=== PATIENT | female | born 1995 | race Caucasian/White ===

== ENCOUNTER 2018-01-22 21:56 | Emergency (ER) | payer OTHER ==
[2018-01-22 22:31] VITALS: O2SAT 100
--- NOTE | 2018-01-22 22:35 | C.PDOC ---
History Of Present Illness 22 year old female with PMHx of kidney stones presents to the ED complaining of right flank pain. She denies any nausea, fever, chills, vomiting, hematuria, or any other symptoms. Time Seen by Provider: 01/22/18 22:35 Chief Complaint (Nursing): Abdominal Pain History Per: Patient History/Exam Limitations: no limitations Current Symptoms Are (Timing): Still Present Severity: Moderate Pain Scale Rating Of: 4 Location Of Pain/Discomfort: Other (Right flank) Quality Of Discomfort: Cramping, Pressure Associated Symptoms: denies: Fever, Chills, Nausea, Vomiting, Diarrhea, Urinary Symptoms Exacerbating Factors: None Alleviating Factors: None Last Bowel Movement: Today Recent travel outside of the [place]: No Additional History Per: Family Abnormal Vaginal Bleeding: No Past Medical History Reviewed: Historical Data, Nursing Documentation, Vital Signs Vital Signs: Last Vital Signs Temp 98.3 F 01/23/18 01:22 Pulse 80 01/23/18 01:22 Resp 16 01/23/18 01:22 BP 105/71 01/23/18 01:22 Pulse Ox 100 01/23/18 01:22 - Medical History PMH: Kidney Stones Surgical History: Tonsillectomy Family History: States: No Known Family Hx - Social History Hx Alcohol Use: No Hx Substance Use: No - Immunization History Hx Tetanus Toxoid Vaccination: No Hx Influenza Vaccination: No Hx Pneumococcal Vaccination: No Review Of Systems Constitutional: Negative for: Fever, Chills Gastrointestinal: Positive for: Abdominal Pain (right flank pain). Negative for : Nausea, Vomiting, Diarrhea Genitourinary: Positive for: Dysuria Skin: Negative for: Rash Neurological: Negative for: Weakness Psych: Negative for: Anxiety Physical Exam - Physical Exam Appears: Non-toxic Skin: Warm, Dry Nose: Normal Oral Mucosa: Moist Chest: Symmetrical Cardiovascular: Rhythm Regular Respiratory: No Rales, No Rhonchi, No Wheezing Gastrointestinal/Abdominal: Soft, Tenderness (Right flank tenderness ), No Distention, No Guarding, No Rebound Back: CVA Tenderness (r flank) Extremity: Normal ROM Neurological/Psych: Oriented x3, Normal Speech Gait: Steady ED Course And Treatment - Laboratory Results Result Diagrams: 01/22/18 23:21 01/22/18 23:21 O2 Sat by Pulse Oximetry: 100 (RA) Pulse Ox Interpretation: Normal Medical Decision Making Medical Decision Making: Orders: - Fluids - UA Disposition Counseled Patient/Family Regarding: Studies Performed, Diagnosis, Need For Followup, Rx Given - Disposition Referrals: Sterling Sevilla Jr., MD [Staff Provider] - [facility] [Outside] [facility] [Outside] Disposition: HOME/ ROUTINE Disposition Time: 22:35 Condition: FAIR Additional Instructions: . salazar aleawdatiburcio 'iidha zaharat al'aeradu. kristyanina 'aydadeena 'iilaa mutabaeat fima yataealaq bialnatayij alwarak ealaa alashieat almiqtaeia Prescriptions: Ibuprofen [Motrin Tab] 800 mg PO TID PRN #115 tab PRN Reason: Pain, Moderate (4-7) Instructions: Renal Colic (DC), Kidney Stones (DC), Sacroiliac Joint Pain (DC) Forms: [employer] (Kosovan) - Clinical Impression Clinical Impression: Renal colic on right side, Kidney stone on right side, Sacroiliitis - Scribe Statement The provider has reviewed the documentation as recorded by the Jaymeibstephie Douglas All medical record entries made by the Scribe were at my direction and personally dictated by me. I have reviewed the chart and agree that the record accurately reflects my personal performance of the history, physical exam, medical decision making, and the department course for this patient. I have also personally directed, reviewed, and agree with the discharge instructions and disposition.
[2018-01-22] MEDS ORDERED: Sodium Chloride 0.9% 1,000 ML IV ONE (22:36)
[2018-01-22] MEDS ORDERED: Sodium Chloride 0.9% 1,000 ML ONE (22:40)
[2018-01-22 23:24] LABS: BASO % 0.4 % (0.0-2.0); EOS # 0.1 K/uL (0.0-0.7); EOS % 0.9 % (0.0-4.0); HEMOGLOBIN 12.8 g/dL (11.0-16.0); LYMPH # 2.7 K/uL (1.0-4.3); LYMPH % 39.2 % (20.0-40.0); MEAN CELL VOLUME 85.7 fL (81.0-99.0); MEAN CORPUSCULAR HEMOGLOBIN 29.1 pg (27.0-31.0); MEAN CORPUSCULAR HGB CONC 33.9 g/dL (33.0-37.0); MEAN PLATELET VOLUME 8.7 fL (7.2-11.7); MONO # 0.6 K/uL (0.0-0.8); MONO % 8.9 % (0.0-10.0); NEUT # 3.4 K/uL (1.8-7.0); NEUT % 50.6 % (50.0-75.0); NRBC % 0.1 % (0.0-2.0); RBC 4.42 Mil/uL (3.80-5.20); RED CELL DISTRIBUTION WIDTH 13.9 % (11.5-14.5); WHITE BLOOD COUNT 6.8 K/uL (4.8-10.8)
[2018-01-22 23:27] LABS: HCG,QUALITATIVE URINE NEGATIVE (NEGATIVE)
[2018-01-22 23:31] LABS: INR 1.1
[2018-01-22 23:34] LABS: SQUAMOUS EPITHIAL 1 /hpf (0-5); URINE BILIRUBIN NEGATIVE (NEGATIVE); URINE BLOOD 3+ (NEGATIVE); URINE GLUCOSE (UA) NORMAL (Normal); URINE LEUKOCYTE ESTERASE NEG Leu/uL (Negative); URINE PROTEIN NEGATIVE (NEGATIVE); URINE UROBILINOGEN NORMAL mg/dL (0.2-1.0)
[2018-01-22 23:36] LABS: ALB/GLOB RATIO 1.5 (1.0-2.1); ALBUMIN 5.1 g/dL (3.5-5.0); ALT/SGPT 22 U/L (9-52); AST/SGOT 12 U/L (14-36); BLOOD UREA NITROGEN 15 mg/dL (7-17); CALCIUM 10.2 mg/dl (8.6-10.4); GFR NON-AFRICAN AMERICAN > 60; LIPASE 143 U/L (23-300)
[2018-01-22 23:53] LABS: URINE CLARITY SL HAZY (Clear); URINE COLOR YELLOW (YELLOW)
[2018-01-23 01:23] VITALS: BP 105/71; PULSE 80; RESP 16; TEMP 98.3
--- NOTE | 2018-01-23 10:03 | CT ---
Date of service: 01/23/2018 PROCEDURE: CT Abdomen and Pelvis without intravenous contrast HISTORY: r flank pain, hx of kidney stone COMPARISON: None. TECHNIQUE: Contiguous images were obtained from the domes of the diaphragms to the upper thighs without the administration of intravenous contrast. Oral contrast was not administered. Radiation dose: Total exam DLP = 218 mGy-cm. This CT exam was performed using one or more of the following dose reduction techniques: Automated exposure control, adjustment of the mA and/or kV according to patient size, and/or use of iterative reconstruction technique. FINDINGS: LOWER THORAX: Unremarkable. LIVER: Unremarkable. No gross lesion or ductal dilatation. GALLBLADDER AND BILE DUCTS: Unremarkable. PANCREAS: Unremarkable. No gross lesion or ductal dilatation. SPLEEN: Unremarkable. ADRENALS: Unremarkable. No mass. KIDNEYS AND URETERS: Right punctate nonobstructive interpolar calculus. Right lower pole 7 x 5 mm nonobstructive calculus. Right extrarenal pelvis. No hydronephrosis. No solid mass. VASCULATURE: Unremarkable. No aortic aneurysm. BOWEL: Unremarkable. No obstruction. No gross mural thickening. APPENDIX: No findings to suggest acute appendicitis. PERITONEUM: Unremarkable. No free fluid. No free air. LYMPH NODES: Unremarkable. No enlarged lymph nodes. BLADDER: Unremarkable. REPRODUCTIVE: Unremarkable. BONES: No acute fracture. Sclerotic appearance both sacroiliac joints. OTHER FINDINGS: None. IMPRESSION: Nonobstructive right nephrolithiasis. No hydronephrosis, obstructive uropathy or evidence of recently passed genitourinary calculus. Bilateral sacroiliitis.
== END 2018-01-23 02:29 | disposition home or self-care (01) ==
LOC: C.ER 21:56
DX: N20.0 Calculus of kidney (principal); M46.1 Sacroiliitis, not elsewhere classified

== ENCOUNTER 2018-07-01 11:11 | Emergency (ER) | payer OTHER ==
[2018-07-01 11:24] VITALS: TEMP 98.8; O2SAT 100
--- NOTE | 2018-07-01 11:54 | C.PDOC ---
History Of Present Illness Translated via senior security engineer: [facility] [id number] 23 year old female patient with history of kidney stones presents to the emergency room complaining of intermittent right flank pain for 6 months. Patient reports she had pain yesterday and took an unknown pain medication which brought relief. Patient does not have any pain today. Last menstrual period was 2 weeks ago. Patient denies dysuria, nausea, back pain, vomiting and fever. Time Seen by Provider: 07/01/18 11:27 Chief Complaint (Nursing): Abdominal Pain History Per: Patient History/Exam Limitations: no limitations Onset/Duration Of Symptoms: Days (x6 month) Current Symptoms Are (Timing): Gone Radiation Of Pain To:: Flank Quality Of Discomfort: "Pain" Past Medical History Reviewed: Historical Data, Nursing Documentation, Vital Signs Vital Signs: Last Vital Signs Temp 98.8 F 07/01/18 11:17 Pulse 82 07/01/18 11:17 Resp 18 07/01/18 11:17 BP 103/70 07/01/18 11:17 Pulse Ox 100 07/01/18 11:17 - Medical History PMH: Kidney Stones Surgical History: Tonsillectomy Family History: States: No Known Family Hx - Social History Hx Alcohol Use: No Hx Substance Use: No - Immunization History Hx Tetanus Toxoid Vaccination: No Hx Influenza Vaccination: No Hx Pneumococcal Vaccination: No Review Of Systems Constitutional: Negative for: Fever Cardiovascular: Negative for: Chest Pain Respiratory: Negative for: Shortness of Breath Gastrointestinal: Positive for: Other (intermittent right sided flank pain; now resolved). Negative for: Nausea, Vomiting Genitourinary: Positive for: Vaginal Discharge (white, occasional; not current). Negative for: Dysuria, Vaginal Bleeding, Pelvic Pain Musculoskeletal: Negative for: Back Pain Physical Exam - Physical Exam Appears: Non-toxic, No Acute Distress Skin: Warm, Dry Head: Atraumatic, Normacephalic Eye(s): bilateral: Normal Inspection, EOMI Nose: Normal Oral Mucosa: Moist Throat: Normal Neck: Supple Chest: Symmetrical Cardiovascular: Rhythm Regular, No Murmur Respiratory: Normal Breath Sounds, No Rales, No Rhonchi, No Wheezing Gastrointestinal/Abdominal: Soft, No Tenderness Back: No CVA Tenderness Extremity: Normal ROM (x4) Neurological/Psych: Oriented x3, Normal Speech ED Course And Treatment O2 Sat by Pulse Oximetry: 100 (RA) Pulse Ox Interpretation: Normal Medical Decision Making Medical Decision Making: Impression: Intermittent flank pain right side Prior record reviewed: CT of abdomen from 01/22/18 showed renal calculus on right side Plan: -- HCG -- UA UA shows blood, no nitrates or leukocytes. Using senior security engineer I explain to patient CT from last ER visit showed renal pelvic stone. Patient has no distress or signs of acute renal colic at this time and no further ER evaluation is necessary. Recommend rest, fluids and analgesics as needed. Rx Ibuprofen and Flomax given. Recommend folow up with urologist. Disposition Counseled Patient/Family Regarding: Diagnosis, Need For Followup, Rx Given - Disposition Referrals: Sterling Sevilla Jr., MD [Staff Provider] - Disposition: HOME/ ROUTINE Disposition Time: 12:41 Condition: GOOD Additional Instructions: Take pain medicine as needed Follow up with urologist Prescriptions: Ibuprofen [Motrin] 600 mg PO Q8 #30 tab Tamsulosin [Flomax] 0.4 mg PO DAILY #10 cap Instructions: Kidney Stones (DC) Forms: [employer] (Mozambican) - POA Present On Arrival: None - Clinical Impression Clinical Impression: Kidney stone on right side - PA / SENIOR SOFTWARE ARCHITECT / Resident Statement / has reviewed & agrees with the documentation as recorded. - Scribe Statement The provider has reviewed the documentation as recorded by the Jade Martinez Do All medical record entries made by the Scribe were at my direction and personally dictated by me. I have reviewed the chart and agree that the record accurately reflects my personal performance of the history, physical exam, medical decision making, and the department course for this patient. I have also personally directed, reviewed, and agree with the discharge instructions and disposition.
[2018-07-01 12:07] LABS: HCG,QUALITATIVE URINE NEGATIVE (NEGATIVE)
[2018-07-01 12:11] LABS: SQUAMOUS EPITHIAL 2 /hpf (0-5); URINE BILIRUBIN NEGATIVE (NEGATIVE); URINE BLOOD 3+ (NEGATIVE); URINE CLARITY Hazy (Clear); URINE COLOR Yellow (YELLOW); URINE GLUCOSE (UA) NORMAL (Normal); URINE LEUKOCYTE ESTERASE NEG Leu/uL (Negative); URINE PROTEIN NEGATIVE (NEGATIVE); URINE UROBILINOGEN NORMAL mg/dL (0.2-1.0)
[2018-07-01 12:44] VITALS: BP 112/74; PULSE 75; RESP 16
== END 2018-07-01 12:51 | disposition home or self-care (01) ==
LOC: C.ER 11:11
DX: N20.0 Calculus of kidney (principal)